=== PATIENT | female | born 2000 | race Caucasian/White ===

== ENCOUNTER → 2022-11-30 | Outpatient (CLI) | payer OTHER ==
[2022-11-30 16:13] LABS: BASO % 0.4 % (0.0-1.0); EOS # 0.4 10^3/uL (0.0-0.5); HEMATOCRIT 44.5 % (36.0-47.0); HEMOGLOBIN 14.9 g/dl (12.0-15.5); LYMPH # 1.5 10^3/uL (1.5-5.0); LYMPH % 21.3 % (24.0-44.0); MEAN CORPUSCULAR HEMOGLOBIN 30.8 pg (27.0-33.0); MEAN CORPUSCULAR HGB CONC 33.5 g/dl (32.0-36.5); MEAN CORPUSCULAR VOLUME 92.1 fl (80.0-96.0); MONO # 0.4 10^3/uL (0.0-0.8); MONO % 5.5 % (2.0-8.0); NEUTROPHILS # 4.7 10^3/uL (1.5-8.5); NEUTROPHILS % 67.5 % (36.0-66.0); PLATELET COUNT, AUTOMATED 201 10^3/uL (150-450); RED BLOOD COUNT 4.83 10^6/uL (4.00-5.40); WHITE BLOOD COUNT 6.9 10^3/uL (4.0-10.0)
[2022-11-30 16:35] LABS: ALBUMIN 4.5 G/DL (3.2-5.2); ALKALINE PHOSPHATASE 62 U/L (46-116); ALT/SGPT 13 U/L (7.0-40); AST/SGOT 14 U/L (<34); BILIRUBIN,TOTAL 0.5 MG/DL (0.3-1.2); BLOOD UREA NITROGEN 7 MG/DL (9-23); CALCIUM LEVEL 9.6 MG/DL (8.5-10.1); CARBON DIOXIDE LEVEL 29 MMOL/L (20-31); CHLORIDE LEVEL 104 MMOL/L (98-107); CREATININE FOR GFR 0.59 MG/DL (0.55-1.30); GLOMERULAR FILTRATION RATE > 60.0 (>60); GLUCOSE, FASTING 93 MG/DL (60-100); IRON (FE) 85 UG/DL (50-170); PERCENT SATURATION 30.2 % (13.2-45.0); POTASSIUM SERUM 4.1 MMOL/L (3.5-5.1); SODIUM LEVEL 141 MMOL/L (136-145); TOTAL IRON BINDING CAPACITY 281 UG/DL (250-425); TOTAL PROTEIN 7.6 G/DL (5.7-8.2)
[2022-11-30 16:38] LABS: FREE T4 1.41 NG/DL (0.89-1.76); THYROID STIMULATING HORMONE 1.996 uIU/ML (0.55-4.78)
[2022-11-30 16:39] LABS: FOLLICLE STIMULATING HORMONE 7.1 mIU/ML; LUTEINIZING HORMONE 3.8 mIU/ML
[2022-11-30 16:43] LABS: PROGESTERONE 0.75 NG/ML
== END ==
LOC: M LAB 14:56
PROVIDERS: ATTEND Nurse Practitioner Adult Health
DX: N92.6 Irregular menstruation, unspecified (principal)

== ENCOUNTER → 2023-01-24 | Outpatient (REF) | payer OTHER ==
[2023-01-24 12:07] LABS: CHLAMYDIA DNA AMPLIFICATION NEGATIVE (NEGATIVE); GC DNA AMPLIFICATION NEGATIVE (NEGATIVE)
== END ==
LOC: M SFHCWAGY 09:58
PROVIDERS: ATTEND Obstetrics & Gynecology
DX: Z12.4 Encounter for screening for malignant neoplasm of cervix (principal); Z11.3 Encounter for screening for infections with a predominantly sexual mode of transmission; R87.619 Unspecified abnormal cytological findings in specimens from cervix uteri
CPT/HCPCS: 87661; 87810; 87850; G0123

== ENCOUNTER → 2023-01-26 | Outpatient (CLI) | payer OTHER | LOC: M WHC 14:14 | PROVIDERS: ATTEND Obstetrics & Gynecology | DX: N93.9 Abnormal uterine and vaginal bleeding, unspecified (principal) ==

== ENCOUNTER → 2023-03-21 | Outpatient (CLI) | payer OTHER ==
[2023-03-21 15:55] LABS: HEMATOCRIT 45.4 % (36.0-47.0); HEMOGLOBIN 15.1 g/dl (12.0-15.5); MEAN CORPUSCULAR HEMOGLOBIN 31.4 pg (27.0-33.0); MEAN CORPUSCULAR HGB CONC 33.3 g/dl (32.0-36.5); MEAN CORPUSCULAR VOLUME 94.4 fl (80.0-96.0); PLATELET COUNT, AUTOMATED 217 10^3/uL (150-450); RED BLOOD COUNT 4.81 10^6/uL (4.00-5.40)
[2023-03-21 16:06] LABS: THYROID STIMULATING HORMONE 2.214 uIU/ML (0.55-4.78); TOTAL 25(OH) VITAMIN D 52.5 NG/ML (20.0-100.0)
[2023-03-23 15:12] LABS: VITAMIN D 1,25 DIHYDROXY 82.3 pg/mL (24.8-81.5)
== END ==
LOC: M PLALAB 14:17
PROVIDERS: ATTEND Obstetrics & Gynecology
DX: N97.9 Female infertility, unspecified (principal)

== ENCOUNTER → 2023-04-05 | Outpatient (REF) | payer OTHER | LOC: M SFHCWAGY 17:39 | PROVIDERS: ATTEND Obstetrics & Gynecology | DX: R87.619 Unspecified abnormal cytological findings in specimens from cervix uteri (principal); N85.8 Other specified noninflammatory disorders of uterus ==

== ENCOUNTER → 2023-06-01 | Outpatient (CLI) | payer OTHER ==
[2023-06-01 12:05] LABS: HEMOGLOBIN A1c 4.9 % (4.0-6.0)
[2023-06-01 12:20] LABS: PROLACTIN 8.71 NG/ML
[2023-06-01 12:42] LABS: HIV 1&2 SCREEN NEGATIVE (NEGATIVE)
[2023-06-01 12:50] LABS: HEPATITIS C VIRUS ABY INDEX < 0.02 INDEX (<0.8)
[2023-06-01 12:51] LABS: HEPATITIS B CORE ANTIBODY IGM NEGATIVE (NEGATIVE)
== END ==
LOC: M LAB 10:56
PROVIDERS: ATTEND Nurse Practitioner Adult Health
DX: N97.9 Female infertility, unspecified (principal)

== ENCOUNTER → 2023-06-15 | Outpatient (CLI) | payer OTHER ==
[~2023-06-15] MED LIST: ISOVUE-370 76% 100ML VIAL As Ordered ONE
== END ==
LOC: M RADPRO 11:58
PROVIDERS: ATTEND Obstetrics & Gynecology
DX: N97.9 Female infertility, unspecified (principal)

== ENCOUNTER → 2023-08-11 | Outpatient (CLI) | payer OTHER ==
[2023-08-11 12:25] LABS: HEPATITIS B SURFACE ANTIGEN NEGATIVE (NEGATIVE)
[2023-08-11 12:38] LABS: HIV 1&2 SCREEN NEGATIVE (NEGATIVE)
[2023-08-11 12:47] LABS: HEPATITIS B CORE ANTIBODY IGM NEGATIVE (NEGATIVE); HEPATITIS C VIRUS ABY INDEX 0.02 INDEX (<0.8)
[2023-08-11 13:08] LABS: GC DNA AMPLIFICATION NEGATIVE (NEGATIVE)
[2023-08-12 05:07] LABS: HSV TYPE I IgG SPECIFIC <0.91 index (0.00-0.90); HSV TYPE II IgG SPECIFIC <0.91 index (0.00-0.90)
== END ==
LOC: M LAB 10:35
PROVIDERS: ATTEND Nurse Practitioner Adult Health
DX: Z11.3 Encounter for screening for infections with a predominantly sexual mode of transmission (principal)

== ENCOUNTER → 2023-10-27 | Outpatient (REF) | payer OTHER ==
[2023-11-01 12:38] LABS: HPV APTIMA Detected (Not Detected)
== END ==
LOC: M SFHCWAGY 14:56
PROVIDERS: ATTEND Obstetrics & Gynecology
DX: N87.0 Mild cervical dysplasia (principal)
CPT/HCPCS: 87624; 88305; G0123

== ENCOUNTER 2024-03-18 04:58 | Emergency (ER) | payer OTHER ==
[~2024-03-18] VITALS: Ht 154.9 cm; Wt 47.0 kg
[2024-03-18 07:26] VITALS: TEMP 99.3
[2024-03-18] MEDS: predniSONE 20 MG TAB PO ONE (08:25)
[2024-03-18] MEDS: IPRATROPIUM 0.5MG/ALBUTEROL 2.5MG INH SOL UD 3ML (DUONEB) NEB ONE (08:32)
[2024-03-18] MEDS ORDERED: BENZ200C70 PO (10:10)
[2024-03-18] MEDS ORDERED: PRED20TA PO (10:10)
[2024-03-18] MEDS ORDERED: VENTAER INH (10:10)
[2024-03-18 10:29] VITALS: BP 117/65; O2SAT 98
== END 2024-03-18 10:35 | disposition home or self-care (01) ==
LOC: M ED 04:58
DX: J20.6 Acute bronchitis due to rhinovirus (principal); J45.909 Unspecified asthma, uncomplicated; I45.10 Unspecified right bundle-branch block; R00.0 Tachycardia, unspecified; Z88.0 Allergy status to penicillin; Z79.52 Long term (current) use of systemic steroids; Z79.899 Other long term (current) drug therapy
CPT/HCPCS: 71046; 87486; 87581; 87633; 87798; 93005; 94640; 99284; J7512

== ENCOUNTER → 2024-04-12 | Outpatient (CLI) | payer OTHER ==
[~2024-04-12] MED LIST changes: +BENZ200C70 PO; -ISOVUE-370 76% 100ML VIAL As Ordered ONE; +PRED20TA PO; +VENTAER INH
== END ==
LOC: M PLARAD 12:43
PROVIDERS: ATTEND Physician Assistant
DX: M25.572 Pain in left ankle and joints of left foot (principal)

== ENCOUNTER → 2024-04-26 | Outpatient (REF) | payer OTHER ==
[2024-04-30 12:37] LABS: HPV APTIMA Detected (Not Detected)
== END ==
LOC: M SFHCWAGY 15:00
PROVIDERS: ATTEND Obstetrics & Gynecology
DX: R87.615 Unsatisfactory cytologic smear of cervix (principal)
CPT/HCPCS: 87624; G0123

== ENCOUNTER → 2024-05-29 | Outpatient (REF) | payer OTHER | LOC: M SFHCWAGY 15:17 | PROVIDERS: ATTEND Obstetrics & Gynecology | DX: N87.0 Mild cervical dysplasia (principal) ==

== ENCOUNTER → 2024-11-29 | Outpatient (REF) | payer OTHER, BC ==
[2024-12-03 14:53] LABS: HPV APTIMA Detected (Not Detected)
== END ==
LOC: M SFHCWAGY 15:36
PROVIDERS: ATTEND Obstetrics & Gynecology
DX: Z12.4 Encounter for screening for malignant neoplasm of cervix (principal)
CPT/HCPCS: 87624; G0123

== ENCOUNTER → 2025-02-27 | Outpatient (REF) | payer BC | LOC: M LAB REF 16:44 | PROVIDERS: ATTEND Physician Assistant | DX: B34.9 Viral infection, unspecified (principal) ==